=== PATIENT | female | born 1990 | race American Indian/Alaskan Native ===

== ENCOUNTER 2021-12-04 00:53 | Emergency (ER) | payer SELFPAY ==
[2021-12-04] MEDS ORDERED: SODIUM CHLORIDE 0.9% 1000 ML 1,000 ML IV ONE ×2 (01:32→04:30)
[2021-12-04] MEDS ORDERED: ONDANSETRON 4 MG/2 ML INJ IV ONE (01:52)
[2021-12-04 02:11] LABS: Basophils % (Auto) 0.4 % (0.0-1.8); Eosinophils % (Auto) 0.5 % (0.0-4.3); Hematocrit 33.7 % (30.3-42.9); Hemoglobin 10.5 gm/dl (10.1-14.3); Lymphocytes # (Auto) 2.3 K/mm3 (1.2-5.4); Lymphocytes % (Auto) 22.5 % (13.4-35.0); Mean Corpuscular HGB Conc 31 % (30-34); Mean Corpuscular Volume 82 fl (79-97); Monocytes # (Auto) 0.6 K/mm3 (0.0-0.8); Monocytes % (Auto) 6.1 % (0.0-7.3); Platelet Count 365 K/mm3 (140-440); Red Blood Count 4.09 M/mm3 (3.65-5.03); Red Cell Distribution Width 14.2 % (13.2-15.2)
[2021-12-04 02:18] LABS: INR 0.94 (0.87-1.13)
[2021-12-04 02:30] LABS: Alanine Aminotransferase 9 units/L (7-56); Albumin 4.2 g/dL (3.9-5); Blood Urea Nitrogen 14 mg/dL (7-17); Calcium 8.5 mg/dL (8.4-10.2); Hemolysis Index 15
[2021-12-04 02:35] LABS: BUN/Creatinine Ratio 20
[2021-12-04 04:18] VITALS: BP 111/68
--- NOTE | 2021-12-04 04:58 | XRay Report ---
CHEST 1 VIEW INDICATION / CLINICAL INFORMATION: Dyspnea STUDY TIME: 354 COMPARISON: None available. FINDINGS: SUPPORT DEVICES: None HEART / MEDIASTINUM: Mild cardiac prominence LUNGS / PLEURA: Poor degree of inspiration. Slight atelectasis in the right base. No definite pneumon ic infiltrates or effusions. No pneumothorax. ADDITIONAL FINDINGS: No significant additional findings. Signer Name: Lloyd Dia MD Signed: 12/04/2021 4:54 AM Workstation Name: [id number]
--- NOTE | 2021-12-04 06:00 | Emergency Department Report ---
History of Present Illness - General Chief Complaint: Overdose Stated Complaint: AMS, REACTION TO INFUSED GUMMIES Time Seen by Provider: 12/04/21 01:32 Source: EMS Mode of arrival: Stretcher Limitations: No Limitations - History of Present Illness Initial Comments: CALLED 911 DUE TO PT "WAS CHRISTINE UP AND ACTING UP" FOUND HER WITH THE BAG OF "INFUSED RADHA GUMMIES" 500 MG THC WHOLE BAG WAS GONE. PT WAS ALERT WHEN EMS INITIALLY ARRIVED DURING TRANSPORT PT BECAME SLEEPY. pt denies any SI or suicidal intentions , bag of thc gummies 500 was found with her, she didn;t mention how much she took because it was all melted Complaint: accidental overdose -: hour(s) Intent: want to go to sleep How Overdose Was Discovered: called family/friend Context: Accidental Overdose: wanted to get high Treatments Prior to Arrival: none - Related Data Allergies Allergy/AdvReac Type Severity Reaction Status Date / Time No Known Allergies Allergy Unverified 12/04/21 00:59 ED Review of Systems ROS: Stated complaint: AMS, REACTION TO INFUSED GUMMIES Other details as noted in HPI Constitutional: denies: chills, fever Eyes: denies: eye pain, eye discharge, vision change ENT: denies: ear pain, throat pain Respiratory: denies: cough, shortness of breath, wheezing Cardiovascular: denies: chest pain, palpitations Endocrine: no symptoms reported Gastrointestinal: denies: abdominal pain, nausea, diarrhea Genitourinary: denies: urgency, dysuria, discharge Musculoskeletal: denies: back pain, joint swelling, arthralgia Skin: denies: rash, lesions Neurological: denies: headache, weakness, paresthesias Psychiatric: denies: anxiety, depression Hematological/Lymphatic: denies: easy bleeding, easy bruising ED Past Medical Hx - Past Medical History Previous Medical History?: Yes Hx Hypertension: No Hx CVA: No Additional medical history: GALLSTONES - Surgical History Past Surgical History?: No - Social History Smoking Status: Unknown if ever smoked Substance Use Type: None ED Physical Exam - General Limitations: No Limitations General appearance: in no apparent distress, other (sleepy drowsy) - Head Head exam: Present: atraumatic, normocephalic - Eye Eye exam: Present: normal appearance - ENT ENT exam: Present: mucous membranes moist - Neck Neck exam: Present: normal inspection - Respiratory Respiratory exam: Present: normal lung sounds bilaterally. Absent: respiratory distress - Cardiovascular Cardiovascular Exam: Present: regular rate, normal rhythm. Absent: systolic murmur, diastolic murmur, rubs, gallop - GI/Abdominal GI/Abdominal exam: Present: soft, normal bowel sounds - Extremities Exam Extremities exam: Present: normal inspection - Back Exam Back exam: Present: normal inspection - Neurological Exam Neurological exam: Present: alert, oriented X3 - Psychiatric Psychiatric exam: Present: normal affect. Absent: homicidal ideation, suicidal ideation - Skin Skin exam: Present: warm, dry, intact, normal color. Absent: rash ED Course Vital Signs 12/04/21 12/04/21 12/04/21 00:59 01:50 02:49 Temperature 98.2 F Pulse Rate 86 72 Respiratory 18 13 Rate Blood Pressure 126/86 Blood Pressure 120/55 [Right] O2 Sat by Pulse 96 98 98 Oximetry 12/04/21 04:17 Temperature Pulse Rate 70 Respiratory 13 Rate Blood Pressure Blood Pressure 111/68 [Right] O2 Sat by Pulse 98 Oximetry ED Medical Decision Making - Lab Data Result diagrams: 12/04/21 01:54 12/04/21 01:54 - EKG Data -: EKG Interpreted by Nv EKG shows normal: sinus rhythm - Radiology Data Radiology results: report reviewed - Medical Decision Making pt denies any SI , work up negative fluids given, nausea controlled, observed for more than5 hours , gradually back to her [facility] Critical care attestation.: If time is entered above; I have spent that time in minutes in the direct care of this critically ill patient, excluding procedure time. ED Disposition Clinical Impression: Mild tetrahydrocannabinol (THC) abuse, Accidental drug ingestion Disposition: 01 HOME / SELF CARE / HOMELESS Is pt being admited?: No Does the pt Need Aspirin: No Condition: Stable Instructions: Synthetic Cathinones Use Disorder
--- NOTE | 2021-12-04 10:58 | Electrocardiograph Report ---
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
== END 2021-12-04 06:19 | disposition home or self-care (01) ==
LOC: ED 00:53
DX: F12.10 Cannabis abuse, uncomplicated (principal); T50.905A Adverse effect of unspecified drugs, medicaments and biological substances, initial encounter
CPT/HCPCS: 36415; 71045; 80053; 82550; 84484; 84703; 85025; 85610; 93005; 96361; 96374; 99284; J2405; J7030; 80320; G0480